=== PATIENT | male | born 1970 | race Caucasian/White ===

== ENCOUNTER 2017-09-12 13:58 | Emergency (ER) | payer OTHER ==
[2017-09-12 14:51] VITALS: BP 127/84
--- NOTE | 2017-09-12 15:37 | UC ---
Eye Complaint HPI - HPI Summary HPI Summary: Patient is here today with his son who has the same chief complaint they were traveling together last couple 3 days they've noticed they've gotten some itching and some discharge from left eye. Conjunctiva is red, no visual deficits no fevers no pain with moving eye no swelling no injury - History of Current Complaint Chief Complaint: UCEye Stated Complaint: BILATERAL EYES Time Seen by Provider: 09/12/17 15:31 Hx Obtained From: Patient Onset/Duration: Sudden Onset Timing: Constant Pain Intensity: 3 Pain Scale Used: 0-10 Numeric Location of Injury: Conjunctiva - left eye red Character: Dull Aggravating Factor(s): Nothing Alleviating Factor(s): Nothing Associated Signs And Symptoms: Positive: Drainage (Purulent). Negative: Vision Impairment Right, Vision Impairment Left, Fever - Allergies/Home Medications Allergies/Adverse Reactions: Allergies Allergy/AdvReac Type Severity Reaction Status Date / Time Penicillins Allergy Severe Itching Verified 09/12/17 14:47 Home Medications: Home Medications Ibuprofen TAB* [Advil TAB*] 400 mg PO Q6H PRN 09/12/17 [History Confirmed ] Loratadine [Claritin 10 MG CAP] 10 mg PO DAILY 09/12/17 [History Confirmed 09/12] Multivitamins/Minerals TAB* [Theragran/minerals TAB*] 1 tab PO DAILY 09/12/17 [ History Confirmed 09/12/17] PMH/Surg Hx/FS Hx/Imm Hx Previously Healthy: Yes - Surgical History Surgical History: Yes Surgery Procedure, Year, and Place: Pacemaker 2011,BARIATRIC SURGERY 10/2013 - Family History Known Family History: Positive: None - Social History Occupation: Employed Full-time Lives: With Family Alcohol Use: Occasionally Substance Use Type: None Smoking Status (MU): Former Smoker When Did the Patient Quit Smoking/Using Tobacco: 2006 - Immunization History Most Recent Influenza Vaccination: none Review of Systems Constitutional: Negative Skin: Negative Eyes: Drainage - left, Eye Redness - left ENT: Negative Respiratory: Negative Cardiovascular: Negative Gastrointestinal: Negative Genitourinary: Negative Motor: Negative Neurovascular: Negative Musculoskeletal: Negative Neurological: Negative Psychological: Negative Is Patient Immunocompromised?: No All Other Systems Reviewed And Are Negative: Yes Physical Exam Triage Information Reviewed: Yes Appearance: Well-Appearing, No Pain Distress, Well-Nourished Vital Signs: Initial Vital Signs Temp 98.1 F 09/12/17 14:45 Pulse 60 09/12/17 14:45 Resp 15 09/12/17 14:45 BP 127/84 09/12/17 14:45 Pulse Ox 100 09/12/17 14:45 Vital Signs Reviewed: Yes Eye Exam: Other Eyes: Positive: Conjunctiva Clear - right, Conjunctiva Inflamed - left, Discharge - left ENT Exam: Normal ENT: Positive: Normal ENT inspection, Hearing grossly normal, Pharynx normal, Uvula midline. Negative: Nasal congestion, Trismus, Muffled voice, Hoarse voice , Dental tenderness, Sinus tenderness Dental Exam: Normal Neck exam: Normal Neck: Positive: Supple, Nontender, No Lymphadenopathy Respiratory Exam: Normal Respiratory: Positive: Chest non-tender, No respiratory distress, No accessory muscle use Cardiovascular Exam: Normal Cardiovascular: Positive: RRR, Pulses Normal, Brisk Capillary Refill Musculoskeletal Exam: Normal Musculoskeletal: Positive: Strength Intact, ROM Intact, No Edema Neurological Exam: Normal Neurological: Positive: Alert, Muscle Tone Normal Psychological Exam: Normal Skin Exam: Normal Eye Complaint Course/Dx - Course Course Of Treatment: warm compress polytrim opthalmic drops q4h while awake for 7 days follow with pcp prn - Differential Dx/Diagnosis Provider Diagnoses: OS Conjuctivitis Discharge - Sign-Out/Discharge Documenting (check all that apply): Discharge/Admit/Transfer - Discharge Plan Condition: Stable Disposition: HOME Prescriptions: Polymyx/Trimethoprim OPTH* [Polytrim OPHTH*] 1 drop LEFT EYE Q4H #1 btl Patient Education Materials: How to Use Eye Drops (ED), Conjunctivitis (ED) Referrals: Pal Hendrix MD [Primary Care Provider] - If Needed - Billing Disposition and Condition Condition: STABLE Disposition: Home
== END 2017-09-12 15:52 | disposition home or self-care (01) ==
LOC: UCCORT 13:58
DX: H10.9 Unspecified conjunctivitis (principal); Z88.0 Allergy status to penicillin; Z87.891 Personal history of nicotine dependence
CPT/HCPCS: 99212; G0463

== ENCOUNTER 2017-09-13 17:48 | Emergency (ER) | payer OTHER ==
[2017-09-13 18:54] VITALS: BP 131/85
--- NOTE | 2017-09-13 19:40 | ED ---
Throat Pain/Nasal Congestion - HPI Summary HPI Summary: Drainage from both eyes. He was started on Polytrim yesterday for conjunctivitis. His son has conjunctivitis and eye drainage as well. Both were started on meds yesterday. The patient has no blurred vision. He does not wear contact lenses. He has a mild headache. - History of Current Complaint Chief Complaint: UCEye Time Seen by Provider: 09/13/17 19:26 - Allergies/Home Medications Allergies/Adverse Reactions: Allergies Allergy/AdvReac Type Severity Reaction Status Date / Time Penicillins Allergy Severe Itching Verified 09/13/17 18:54 PMH/Surg Hx/FS Hx/Imm Hx Endocrine/Hematology History: Reports: Hx Thyroid Disease Cardiovascular History: Reports: Hx Pacemaker/ICD - [place] 2010, Other Cardiovascular Problems/Disorders - AV Block Respiratory History: Reports: Hx Sleep Apnea - Surgical History Surgery Procedure, Year, and Place: Pacemaker 2011,BARIATRIC SURGERY 10/2013 Infectious Disease History: Yes Infectious Disease History: Denies: Traveled Outside the [place] in Last 30 Days - Family History Known Family History: Positive: None - Social History Alcohol Use: Occasionally Substance Use Type: Reports: None Hx Tobacco Use: No Smoking Status (MU): Former Smoker Review of Systems Constitutional: Negative Positive: Drainage, Erythema Positive: Headache All Other Systems Reviewed And Are Negative: Yes Physical Exam Triage Information Reviewed: Yes Vital Signs On Initial Exam: Initial Vitals Temp Pulse Resp BP Pulse Ox 98.3 F 60 20 131/85 99 09/13/17 18:49 09/13/17 18:49 09/13/17 18:49 09/13/17 18:49 09/13/17 18:49 Vital Signs Reviewed: Yes Appearance: Positive: Well-Appearing, No Pain Distress Skin: Positive: Warm, Skin Color Reflects Adequate Perfusion Eyes: Positive: EOMI, CARINE, Conjunctiva Inflammed - bilateral left greater than right with chemosis present left eye. He has some bilateral crusty drainage. ENT: Positive: Normal ENT inspection Respiratory/Lung Sounds: Positive: Other - normal effort Cardiovascular: Positive: Pulses are Symmetrical in both Upper and Lower Extremities Abdomen Description: Negative: Distended Musculoskeletal: Positive: Strength/ROM Intact Neurological: Positive: Alert, Oriented to Person Place, Time, CN Intact II-III , Normal Gait Psychiatric: Positive: Normal - Ringold Coma Scale Best Eye Response: 4 - Spontaneous Best Motor Response: 6 - Obeys Commands Best Verbal Response: 5 - Oriented Coma Scale Total: 15 Diagnostics - Vital Signs Vital Signs Temp Pulse Resp BP Pulse Ox 09/13/17 18:49 98.3 F 60 20 131/85 99 - Laboratory Lab Statement: Any lab studies that have been ordered have been reviewed, and results considered in the medical decision making process. EENT Course/Dx - Course Course Of Treatment: 47 yr old with bilateral conjunctivitis with chemosis left eye. No contact lense use ever. Will discontinue the polytrim and change ot erythromycin eye ointment. 1/2 inch TID. - Diagnoses Provider Diagnoses: Conjunctivitis Discharge - Sign-Out/Discharge Documenting (check all that apply): Discharge/Admit/Transfer - Discharge Plan Condition: Good Disposition: HOME Prescriptions: Erythromycin OPTH OINT* [Erythromycin 0.5% OPTH OINT*] 1 applic BOTH EYES TID # 1 tube Patient Education Materials: Conjunctivitis (ED) Forms: *Work Release Referrals: Pal Hendrix MD [Primary Care Provider] - 2 Days Albert Galan MD [Medical Doctor] - 09/14/17 - Billing Disposition and Condition Condition: GOOD Disposition: Home
== END 2017-09-13 19:48 | disposition home or self-care (01) ==
LOC: UCCORT 17:48
DX: H10.9 Unspecified conjunctivitis (principal); Z88.0 Allergy status to penicillin; Z87.891 Personal history of nicotine dependence
CPT/HCPCS: 99212; G0463

== ENCOUNTER 2018-04-13 10:16 | Emergency (ER) | payer OTHER ==
[2018-04-13 11:28] VITALS: BP 134/77
[2018-04-13 11:45] LABS: Influenza A Molecular NEGATIVE (Negative); Influenza B Molecular NEGATIVE (Negative)
[2018-04-13] MEDS ORDERED: Ibuprofen TAB* 600 MG PO ONE (12:12)
--- NOTE | 2018-04-13 12:12 | UC ---
FLU HPI - HPI Summary HPI Summary: 48-year-old male comes in with 2 days of fever chills body aches. He's been trying [id number] medications which do help with symptoms. He has minimal rhinorrhea and a mild sore throat. He's got some coughing but is not bringing anything up he does not feel congestion in his chest. He has been urinating quite frequently but it does not burn. - History of Current Complaint Chief Complaint: UCGeneralIllness Stated Complaint: GUADARRAMA,FEVER,COUGH,BODY ACHES Time Seen by Provider: 04/13/18 11:57 Pain Intensity: 3 - Allergy/Home Medications Allergies/Adverse Reactions: Allergies Allergy/AdvReac Type Severity Reaction Status Date / Time Penicillins Allergy Severe Itching Verified 09/13/17 18:54 Home Medications: Home Medications D-Methorphan/PE/Acetaminophen [Theraflu Expressmax Day Caplet] 1 each PO DAILY 04/13/18 [History Confirmed 04/13/18] PMH/Surg Hx/FS Hx/Imm Hx Previously Healthy: Yes - Surgical History Surgical History: Yes Surgery Procedure, Year, and Place: Pacemaker 2011,BARIATRIC SURGERY 10/2013 - Family History Known Family History: Positive: None - Social History Alcohol Use: Occasionally Substance Use Type: None Smoking Status (MU): Former Smoker When Did the Patient Quit Smoking/Using Tobacco: 2006 - Immunization History Most Recent Influenza Vaccination: none Review of Systems All Other Systems Reviewed And Are Negative: Yes Constitutional: Positive: Fever, Chills Skin: Positive: Negative Eyes: Positive: Negative ENT: Positive: Sore Throat, Nasal Discharge, Sinus Congestion Respiratory: Positive: Cough Cardiovascular: Positive: Negative Gastrointestinal: Positive: Negative Genitourinary: Positive: Frequency. Negative: Dysuria Motor: Positive: Negative Neurovascular: Positive: Negative Musculoskeletal: Positive: Myalgia Neurological: Positive: Negative Psychological: Positive: Negative Is Patient Immunocompromised?: No Physical Exam Triage Information Reviewed: Yes Appearance: No Pain Distress, Well-Nourished, Ill-Appearing - mild Vital Signs: Initial Vital Signs Temp 102.9 F 04/13/18 11:23 Pulse 94 04/13/18 11:23 Resp 17 04/13/18 11:23 BP 134/77 04/13/18 11:23 Pulse Ox 96 04/13/18 11:23 Vital Signs Reviewed: Yes Eye Exam: Normal Eyes: Positive: Conjunctiva Clear ENT: Positive: Pharynx normal, Nasal congestion, TMs normal Neck exam: Normal Neck: Positive: Supple Cardiovascular: Positive: RRR Musculoskeletal Exam: Normal Musculoskeletal: Positive: Strength Intact, ROM Intact Neurological Exam: Normal Neurological: Positive: Alert, Muscle Tone Normal Psychological Exam: Normal Psychological: Positive: Age Appropriate Behavior Skin Exam: Normal Flu Course/Dx - Course Course Of Treatment: DISCUSSED VIRAL VERSES BACTERIAL INFECTION AND THE ROLE OF ANTIBIOTICS. THE PATIENT WISHES TO BE ON ANTIBIOTIC AT THIS TIME. We discussed the urine results and also the fingerstick blood sugar results. This time recommended staying hydrated Tylenol ibuprofen as needed for body aches. Follow-up primary care or return here if not improving or worse in. - Differential Dx/Diagnosis Provider Diagnosis: Influenza-like illness Discharge - Sign-Out/Discharge Documenting (check all that apply): Patient Departure All imaging exams completed and their final reports reviewed: No Studies - Discharge Plan Condition: Stable Disposition: HOME Prescriptions: DOXYcycline CAP(*) [DOXYcycline 100MG CAP(*)] 100 mg PO BID #20 cap Patient Education Materials: Upper Respiratory Infection (ED) Forms: *Work Release Referrals: Pal Hendrix MD [Primary Care Provider] - Additional Instructions: FOLLOW UP WITH YOUR DOCTOR IF NOT COMPLETELY IMPROVED. GET RECHECKED SOONER WITH ANY WORSENING OF YOUR CONDITION OR QUESTIONS OR CONCERNS. - Billing Disposition and Condition Condition: STABLE Disposition: Home
== END 2018-04-13 12:37 | disposition home or self-care (01) ==
LOC: UCCORT 10:16
DX: J11.1 Influenza due to unidentified influenza virus with other respiratory manifestations (principal); Z88.0 Allergy status to penicillin; Z87.891 Personal history of nicotine dependence
CPT/HCPCS: 81003; 99212; A9270-GY; G0463